=== PATIENT | female | born 1960 | race Caucasian/White ===

== ENCOUNTER 2024-01-19 13:11 | Observation (INO) ==
[2024-01-19] MEDS: ACETAMINOPHEN 1,000 MG/100 ML VIAL IV STA (13:44)
--- NOTE | 2024-01-19 13:44 | Emergency Department Note ---
Impression & Plan Acute confusion, Influenza A, Fever, Elevated procalcitonin, Elevated serum creatinine, Acute hypokalemia, Non-ST elevation AR (NSTEMI) ED Provider Note HISTORY OF PRESENT ILLNESS: Patient is a 63-year-old female presenting with confusion and weakness. Son provides most of history. Reports that the patient has been lethargic and acting very confused for the last 24 hours. Reports that she seems like she has been having difficulties getting words out. Reports that the patient has had subjective fevers and chills at home. 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 Patient denies any chest pain or shortness of breath. She is on Coumadin for previous history of cardiac stents. She reports she has [address] She denies any nausea, vomiting or abdominal pain. Denies any dysuria or hematuria. Reports she started having some nasal congestion 2 days ago. ROS: as above PHYSICAL EXAM: Constitutional: Patient appears in no acute distress. HENT: Head: Normocephalic and atraumatic. Eyes: EOMI, PERRL Mouth/Throat: Mucous membranes moist. Neck: Trachea midline. Neck supple. Cardiovascular: Tachycardic with regular rhythm. No murmurs, rubs or gallops. Intact distal pulses. Pulmonary/Chest: No respiratory distress. Breath sounds clear and equal bilaterally. No wheezes or rales. Abdominal: Abdomen soft, no tenderness, rebound or guarding. Musculoskeletal: No edema, tenderness or deformity noted. Skin: Warm and dry. No rash, erythema, pallor or cyanosis Psychiatric: Appropriate mood and affect for situation. Neurological: Alert and keenly responsive. CN II-XII grossly intact, moving all extremities equally and fully. MDM: - Vitals signs showed fever, hypotension and tachycardia. - History obtained via patient's son, given patient's confusion. History as above. - Chronic conditions affecting care: CAD (s/p PCI); HLD; HTN; hypopituitarism; hypothyroidism - Differential diagnoses include, but are not limited to: CVA; intracranial hemorrhage; viral syndrome; pneumonia; UTI; dysrhythmia - Order placed for continuous cardiac monitoring. At this time, monitor showed rate of 93 bpm with normal sinus rhythm, per my interpretation. - External medical records reviewed. Wellness visit note dated 12/10/2023 was reviewed. Patient followed up in their clinic for her healthcare maintenance examination. - EKG interpreted by myself showed normal sinus rhythm. Rate tachycardic at 102 bpm. QT prolonged at 418. No acute ischemic changes. Noted to have an occasional PVC - Laboratory workup interpreted by myself showed normal WBC; hypokalemia (K 3.3); elevated anion gap (12); KRISTIN (Cr 1.38); normal lactate; elevated troponin (21.5); elevated procalcitonin (1.01) - Blood cultures obtained - IV rocephin ordered for empiric coverage - Patient given 2L NS and 1g IV acetaminophen for hydration and fever. Patient's sepsis fluid resuscitation volume will be 1704.3 mL based on ideal body weight. - VBG grossly unremarkable - CXR negative for pneumonia, per my interpretation - UA negative. - CT head wo contrast negative for acute pathology, per radiology - Viral respiratory panel positive for influenza A. - Patient given 75 mg PO tamiflu. - Discussion was had with case management manager about patient's case and need for admission - Hospitalist consulted for admission - [facility] further evaluation and management. ASSESSMENT AND PLAN: Diagnosis: acute confusion; influenza A; elevated procalcitonin; elevated creatinine; NSTEMI; acute hypokalemia Plan: admit Past Med/Surg History Medical History (Updated 01/19/24 @ 15:53 by Sarah Lewis MD) Lump of left breast Myofascial pain Chronic anticoagulation Chronic low back pain Right groin pain Tremor Lumbar facet joint syndrome Leg length discrepancy Seizure-like activity Hypercalcemia Pituicytoma Scoliosis Fibromyalgia Osteoarthritis Anxiety Jerking movements of extremities Hyperlipidemia Myocardial Infarction 2013--follows with Dr. 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 [facility] Dyslipidemia Hypertension History of therapeutic radiation 2006 Migraine Chronic pain Insomnia CAD (coronary artery disease) [facility] Surgical History History of bunionectomy History of toe surgery History of colonoscopy History of esophagogastroduodenoscopy (EGD) History of wisdom tooth extraction History of tooth extraction 06/02/23 History of blepharoplasty bilt History of cardiac cath 2013 @ [facility] in [place], [place] H/O heart artery stent 2013--5 stents placed History of cryosurgery S/P craniotomy x2--benign pituitary tumor in [place] Family History Father Heart disease Myocardial infarction Family history of diabetes mellitus Mother Stroke Family history of diabetes mellitus Myocardial infarction Grandfather (Maternal) Stroke Grandmother (Maternal) Stroke Sister Stroke Other Anxiety Depression Hypertension No family history of adverse response to anesthesia Denies family history of Ovarian cancer Prostate cancer Breast cancer Lung cancer Colorectal cancer Social History Smoking Status: Never smoker Second Hand Exposure: No (mom smoked); Do You Dip or Chew Tobacco: No; Hx Alcohol Use: No Hx Substance Use: No Preferred Language: Luxembourger Communication Ability: Effective Visual Impairment: Partially Limited Hearing Ability: Normal Warp Knit Operator Required: No Beliefs That Will Affect Care: None marital status: Legally Current Living Situation: Family Current Living Situation Comment: Lives with son current occupational status: employed 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 How many Children do You have: 2 Feels Safe at Home: Yes Childhood Exposure to Second-Hand Smoke: Yes (mother smoked ) caffeine: Yes (coffee) Dental Care, Regularly: No Physical Activity Frequency: 3-4 Times per Week Physical Activity Frequency Comment: swimming Seatbelt Use: always Sunscreen Use: Yes Assistive Devices: None Allergies Allergies Allergy/AdvReac Type Severity Reaction Status Date / Time cephalothin [From Seffin] Allergy Intermediate Hives Verified 12/10/23 11:14 Cephalosporins Allergy Verified 12/10/23 11:14 Home Meds Home Medications Medication Instructions Recorded Confirmed cholecalciferol (vitamin D3) 50 2,000 unit PO QAM 04/06/20 12/10/23 mcg (2,000 unit) tablet (Vitamin D3) rimegepant 75 mg disintegrating 75 mg PO ONCE PRN migraine headache 04/28/23 12/10/23 tablet (Nurtec ODT) Previous Rx's Medication Instructions Recorded aspirin 81 mg tablet,delayed 81 mg PO DAILY #30 tabs 09/01/19 release mecobalamin (vitamin B12) 10,000 1,000 mcg IM .COMPLEX #1 ea 10/25/21 mcg solution for injection diazepam 5 mg tablet 5 mg PO .COMPLEX PRN anxiety #2 04/28/23 tabs rosuvastatin 20 mg tablet 20 mg PO QAM #90 tabs 04/29/23 gabapentin 600 mg tablet 600 mg PO BID #60 tabs 06/22/23 levothyroxine 125 mcg tablet 125 mcg PO DAILY #90 tabs 07/13/23 pantoprazole 40 mg tablet,delayed 40 mg PO QAM #90 tabs 08/12/23 release tramadol 50 mg tablet 50 mg PO .QD-BID PRN pain #30 tabs 08/17/23 montelukast 10 mg tablet 10 mg PO QPM #30 tabs 09/09/23 (Singulair) prednisone 1 mg tablet 4 mg (4 x 1 mg) PO QAM #360 tabs 10/22/23 fluticasone 100 mcg-salmeterol 50 1 inh inhalation BID #60 ea 10/25/23 mcg/dose blistr powdr for inhalation (Advair Diskus) fenofibrate 160 mg tablet 160 mg PO DAILY #90 tabs 10/29/23 clopidogrel 75 mg tablet 75 mg PO DAILY #90 tabs 11/08/23 doxycycline hyclate 100 mg tablet 100 mg PO BID 7 days #14 tabs 12/08/23 cyclobenzaprine 10 mg tablet 10 mg PO BID PRN muscle spasm #60 12/14/23 tabs metoprolol succinate 25 mg 25 mg PO DAILY #90 tabs 12/14/23 tablet,extended release 24 hr topiramate 50 mg tablet (Topamax) 50 mg PO .COMPLEX #90 tabs 12/25/23 clonazepam 1 mg tablet 1 mg PO HS #30 tabs 01/07/24 albuterol sulfate 90 mcg/actuation 2 puff inhalation Q6 PRN Shortness 01/13/24 aerosol inhaler Of Breath Or Wheezing #8.5 grams Results & Data (ED) Vital Signs Vital Signs - 24 hr 01/19/24 13:15 01/19/24 13:24 01/19/24 13:30 Temperature 39.5 C H Temperature Source Oral Pulse Rate 122 H 108 H Pulse Rate from SpO2 Sensor Respiratory Rate 18 26 H Blood Pressure 122/85 Blood Pressure [Right Arm] Blood Pressure Mean 89 Blood Pressure Mean [Right Arm] Pulse Oximetry 98 Oxygen Delivery Method Room Air Sepsis Recent Fever Within 48 Hours Yes Sepsis New/Unexplained Change in Mental Status No Sepsis Action Taken by Nursing No Action Required 01/19/24 13:30 01/19/24 13:44 01/19/24 13:45 Temperature Temperature Source Pulse Rate 103 H 109 H 101 H Pulse Rate from SpO2 Sensor 93 H 102 H Respiratory Rate 21 25 H Blood Pressure Blood Pressure [Right Arm] Blood Pressure Mean Blood Pressure Mean [Right Arm] Pulse Oximetry 94 95 Oxygen Delivery Method Sepsis Recent Fever Within 48 Hours Sepsis New/Unexplained Change in Mental Status Sepsis Action Taken by Nursing 01/19/24 14:00 01/19/24 14:00 01/19/24 14:15 Temperature Temperature Source Pulse Rate 109 H 103 H Pulse Rate from SpO2 Sensor 102 H Respiratory Rate 29 H 21 Blood Pressure 121/87 Blood Pressure [Right Arm] Blood Pressure Mean 95 Blood Pressure Mean [Right Arm] Pulse Oximetry 94 Oxygen Delivery Method Sepsis Recent Fever Within 48 Hours Sepsis New/Unexplained Change in Mental Status Sepsis Action Taken by Nursing 01/19/24 14:30 01/19/24 14:30 01/19/24 14:38 Temperature Temperature Source Pulse Rate 100 H Pulse Rate from SpO2 Sensor Respiratory Rate 16 Blood Pressure 92/68 L Blood Pressure [Right Arm] 92/68 L Blood Pressure Mean 74 Blood Pressure Mean [Right Arm] 76 Pulse Oximetry Oxygen Delivery Method Sepsis Recent Fever Within 48 Hours Sepsis New/Unexplained Change in Mental Status Sepsis Action Taken by Nursing 01/19/24 14:46 01/19/24 14:59 01/19/24 15:00 Temperature Temperature Source Pulse Rate 97 H 93 H 97 H Pulse Rate from SpO2 Sensor 92 H 92 H Respiratory Rate 16 21 21 Blood Pressure Blood Pressure [Right Arm] Blood Pressure Mean Blood Pressure Mean [Right Arm] Pulse Oximetry 94 85 L Oxygen Delivery Method Sepsis Recent Fever Within 48 Hours Sepsis New/Unexplained Change in Mental Status Sepsis Action Taken by Nursing 01/19/24 15:01 01/19/24 15:01 01/19/24 15:15 Temperature Temperature Source Pulse Rate 98 H 92 H Pulse Rate from SpO2 Sensor 98 H Respiratory Rate 16 19 Blood Pressure 94/68 L Blood Pressure [Right Arm] Blood Pressure Mean 81 Blood Pressure Mean [Right Arm] Pulse Oximetry 95 Oxygen Delivery Method Sepsis Recent Fever Within 48 Hours Sepsis New/Unexplained Change in Mental Status Sepsis Action Taken by Nursing 01/19/24 15:30 01/19/24 15:45 01/19/24 15:48 Temperature Temperature Source Pulse Rate 93 H 89 85 Pulse Rate from SpO2 Sensor Respiratory Rate 20 17 27 H Blood Pressure Blood Pressure [Right Arm] Blood Pressure Mean Blood Pressure Mean [Right Arm] Pulse Oximetry Oxygen Delivery Method Sepsis Recent Fever Within 48 Hours Sepsis New/Unexplained Change in Mental Status Sepsis Action Taken by Nursing 01/19/24 15:48 Temperature Temperature Source Pulse Rate Pulse Rate from SpO2 Sensor Respiratory Rate Blood Pressure 95/47 L Blood Pressure [Right Arm] Blood Pressure Mean 70 Blood Pressure Mean [Right Arm] Pulse Oximetry Oxygen Delivery Method Sepsis Recent Fever Within 48 Hours Sepsis New/Unexplained Change in Mental Status Sepsis Action Taken by Nursing Laboratory Data 01/19/24 13:40 01/19/24 13:40 Lab Results 01/19/24 01/19/24 01/19/24 Range/Units 13:40 15:08 15:09 WBC 8.64 (4.8-10.8) K/ul RBC 5.22 (4.20-5.40) M/uL Hgb 15.2 (12.0-16.0) g/dl Hct 45.4 (37.0-47.0) % MCV 87.0 (80.0-100.0) fL MCH 29.1 (25.0-34.0) pg MCHC 33.5 (32.0-36.0) g/dL RDW Std Deviation 39.8 (36.4-46.3) fL RDW Coeff of Long 12.7 (11.5-14.5) % Plt Count 226 (130-400) K/uL MPV 10.2 (9.4-12.4) fL Immature Gran % (Auto) 0.3 % Neut % (Auto) 63.9 % Lymph % (Auto) 24.2 % [place] % (Auto) 8.8 % Eos % (Auto) 2.1 % Baso % (Auto) 0.7 % Neut # (Auto) 5.52 (1.40-6.50) K/uL Lymph # (Auto) 2.09 (1.20-3.40) K/uL [place] # (Auto) 0.76 H (0.11-0.59) K/uL Eos # (Auto) 0.18 (0.00-0.50) K/uL Baso # (Auto) 0.06 (0.00-0.20) K/uL Immature Gran # (Auto) 0.03 (0.01-0.20) K/uL PT 12.3 H (9.0-12.0) Seconds INR 1.1 (0.9-1.1) VBG pH 7.43 H (7.36-7.41) VBG pCO2 34 L (38-50) mmHg VBG pO2 38 mmHg VBG HCO3 23 mmol/L VBG O2 Saturation 75.5 % VBG Base Excess -1.1 mEq/L Sodium 137 (136-145) mmol/L Potassium 3.3 L (3.5-5.1) mmol/L Chloride 104 (98-107) mmol/L Carbon Dioxide 21 (21-32) mmol/L Anion Gap 12 H (3-11) BUN 19 (6-23) mg/dl Creatinine 1.38 H (0.6-1.2) mg/dl Est Cr Clr Drug Dosing 42.2 ml/min Est GFR ( Amer) 47.0 ml/min Est GFR (Non-Af Amer) 40.6 ml/min BUN/Creatinine Ratio 13.8 (10-20) Glucose 86 (70-99(Fasting)) mg/dl Lactate 1.5 (0.4-2.0) mmol/L Calcium 9.3 (8.6-10.3) mg/dl Magnesium 1.9 (1.7-2.4) mg/dl Total Bilirubin 0.7 (0.2-1.0) mg/dl Direct Bilirubin 0.1 (0-0.2) mg/dl AST 32 (13-39) U/L ALT 23 (7-52) U/L Alkaline Phosphatase 59 (34-104) U/L Troponin I High Sens 21.5 H 25.6 H (0-14) pg/ml Total Protein 7.7 (6.0-8.3) gm/dl Albumin 4.6 (3.4-5.0) gm/dl Procalcitonin 1.01 H (0-0.5) ng/ml Urine Color Urine Appearance (Clear) Urine pH (4.5-7.5) Ur Specific Plain (1.000-1.030) Urine Protein (Negative) Urine Glucose (UA) (Negative) Urine Ketones (Negative) Urine Blood (Negative) Urine Nitrite (Negative) Urine Bilirubin (Negative) Urine Urobilinogen (Negative) Ur Leukocyte Esterase (Negative) Urine WBC (Auto) (0-5) /hpf Urine RBC (Auto) (0-2) /hpf U Hyaline Cast (Auto) (0-2) /lpf U Epithel Cells (Auto) (0-2) /hpf Urine Bacteria (Auto) (None Seen) Adenovirus (PCR) Not Detected (NotDetected) B. pertussis DNA (PCR) Not Detected (NotDetected) B.parapertussis DNA PCR Not Detected (NotDetected) C. pneumoniae DNA (PCR) Not Detected (NotDetected) Coronavirus OC43 (PCR) Not Detected (NotDetected) Coronavirus HKU1 (PCR) Not Detected (NotDetected) Coronavirus 229E (PCR) Not Detected (NotDetected) SARS-CoV-2 (PCR) Not Detected (NotDetected) Coronavirus NL63 (PCR) Not Detected (NotDetected) Human Metapneumovir PCR Not Detected (NotDetected) Influenza A (H3) PCR DETECTED A (NotDetected) Influenza Type B (PCR) Not Detected (NotDetected) M. pneumoniae (PCR) Not Detected (NotDetected) Parainfluenza 1 (PCR) Not Detected (NotDetected) Parainfluenza 2 (PCR) Not Detected (NotDetected) Parainfluenza 3 (PCR) Not Detected (NotDetected) Parainfluenza 4 (PCR) Not Detected (NotDetected) RSV (PCR) Not Detected (NotDetected) Entero/Rhino (PCR) Not Detected (NotDetected) 01/19/24 Range/Units 15:20 WBC (4.8-10.8) K/ul RBC (4.20-5.40) M/uL Hgb (12.0-16.0) g/dl Hct (37.0-47.0) % MCV (80.0-100.0) fL MCH (25.0-34.0) pg MCHC (32.0-36.0) g/dL RDW Std Deviation (36.4-46.3) fL RDW Coeff of Long (11.5-14.5) % Plt Count (130-400) K/uL MPV (9.4-12.4) fL Immature Gran % (Auto) % Neut % (Auto) % Lymph % (Auto) % [place] % (Auto) % Eos % (Auto) % Baso % (Auto) % Neut # (Auto) (1.40-6.50) K/uL Lymph # (Auto) (1.20-3.40) K/uL [place] # (Auto) (0.11-0.59) K/uL Eos # (Auto) (0.00-0.50) K/uL Baso # (Auto) (0.00-0.20) K/uL Immature Gran # (Auto) (0.01-0.20) K/uL PT (9.0-12.0) Seconds INR (0.9-1.1) VBG pH (7.36-7.41) VBG pCO2 (38-50) mmHg VBG pO2 mmHg VBG HCO3 mmol/L VBG O2 Saturation % VBG Base Excess mEq/L Sodium (136-145) mmol/L Potassium (3.5-5.1) mmol/L Chloride (98-107) mmol/L Carbon Dioxide (21-32) mmol/L Anion Gap (3-11) BUN (6-23) mg/dl Creatinine (0.6-1.2) mg/dl Est Cr Clr Drug Dosing ml/min Est GFR ( Amer) ml/min Est GFR (Non-Af Amer) ml/min BUN/Creatinine Ratio (10-20) Glucose (70-99(Fasting)) mg/dl Lactate (0.4-2.0) mmol/L Calcium (8.6-10.3) mg/dl Magnesium (1.7-2.4) mg/dl Total Bilirubin (0.2-1.0) mg/dl Direct Bilirubin (0-0.2) mg/dl AST (13-39) U/L ALT (7-52) U/L Alkaline Phosphatase (34-104) U/L Troponin I High Sens (0-14) pg/ml Total Protein (6.0-8.3) gm/dl Albumin (3.4-5.0) gm/dl Procalcitonin (0-0.5) ng/ml Urine Color Yellow Urine Appearance Clear (Clear) Urine pH 5.5 (4.5-7.5) Ur Specific Plain 1.017 (1.000-1.030) Urine Protein Negative (Negative) Urine Glucose (UA) Negative (Negative) Urine Ketones Negative (Negative) Urine Blood Negative (Negative) Urine Nitrite Negative (Negative) Urine Bilirubin Negative (Negative) Urine Urobilinogen Negative (Negative) Ur Leukocyte Esterase 1+ H (Negative) Urine WBC (Auto) 0-5 (0-5) /hpf Urine RBC (Auto) 0-2 (0-2) /hpf U Hyaline Cast (Auto) 0-2 (0-2) /lpf U Epithel Cells (Auto) 0-2 (0-2) /hpf Urine Bacteria (Auto) None Seen (None Seen) Adenovirus (PCR) (NotDetected) B. pertussis DNA (PCR) (NotDetected) B.parapertussis DNA PCR (NotDetected) C. pneumoniae DNA (PCR) (NotDetected) Coronavirus OC43 (PCR) (NotDetected) Coronavirus HKU1 (PCR) (NotDetected) Coronavirus 229E (PCR) (NotDetected) SARS-CoV-2 (PCR) (NotDetected) Coronavirus NL63 (PCR) (NotDetected) Human Metapneumovir PCR (NotDetected) Influenza A (H3) PCR (NotDetected) Influenza Type B (PCR) (NotDetected) M. pneumoniae (PCR) (NotDetected) Parainfluenza 1 (PCR) (NotDetected) Parainfluenza 2 (PCR) (NotDetected) Parainfluenza 3 (PCR) (NotDetected) Parainfluenza 4 (PCR) (NotDetected) RSV (PCR) (NotDetected) Entero/Rhino (PCR) (NotDetected) Administered Medications Vancomycin HCl 1,750 mg/ (Sodium Chloride) 535 mls @ 200 mls/hr IV NOW ONE Stop: 01/19/24 17:35 Last Admin: 01/19/24 15:48 Dose: 200 mls/hr Documented By: ACC Discontinued Medications Sodium Chloride (Nss) 1,000 mls @ 999 mls/hr IV .Q1H1M ONE Stop: 01/19/24 14:23 Last Admin: 01/19/24 13:45 Dose: 999 mls/hr Documented By: BCN Acetaminophen (Ofirmev) 1,000 mg in 100 mls @ 400 mls/hr IV NOW STA Stop: 01/19/24 13:37 Last Infusion: 01/19/24 14:27 Dose: Infused Documented By: Admin: 01/19/24 13:44 Dose: 400 mls/hr Documented By: BCN Sodium Chloride (Nss) 1,000 mls @ 999 mls/hr IV .Q1H1M ONE Stop: 01/19/24 15:44 Last Admin: 01/19/24 15:49 Dose: 999 mls/hr Documented By: ACC Ceftriaxone Sodium (Rocephin) 2,000 mg in 50 mls @ 100 mls/hr IV NOW STA Stop: 01/19/24 15:13 Last Admin: 01/19/24 15:23 Dose: 100 mls/hr Documented By: ACC Imaging Data Radiologist's Impression: Chest X-Ray 01/19/24 13:23 XR chest 1V portable HISTORY: Sepsis COMPARISON: Chest 10/19/2023. FINDINGS: The lungs are clear. Cardiac silhouette is normal in size. No pleural effusions. No pneumothorax. Coronary artery stents are again noted. IMPRESSION: No acute process. ACT 112: Negative or not required by law. Electronically signed by: Delfino Banks M.D. 01/19/2024 2:[address] 01/19/24 14:00 CT head/brain wo con CLINICAL HISTORY: 63 years-old Female with confusion. Acutely altered mental status TECHNIQUE: Multiple axial CT images of the head were obtained without contrast. A dose lowering technique was utilized adhering to the principles of ALARA. CT DOSE: 625.8 mGy.cm COMPARISON: 05/18/[address], brain MRI 06/04/2022 FINDINGS: No acute intracranial hemorrhage, midline shift, intracranial mass, hydrocephalus, territorial ischemia or abnormal extra-axial collection. Encephalomalacia within the right frontal lobe redemonstrated. Chronic postoperative changes of the skull and sella. White matter hypodensities are redemonstrated suggestive of chronic microvascular ischemic disease. The calvarium is intact. Mild to moderate mucosal thickening of the paranasal sinuses. IMPRESSION: Chronic findings as above without acute intracranial abnormality. ACT 112: Negative or not required by law. The above report was generated using voice recognition software. It may contain grammatical, syntax or spelling errors. Electronically signed by: Emil Jurado M.D. 01/19/2024 3:03 PM Discharge Plan Visit Data Chief Complaint: Lethargic Stated Complaint: WEAKNESS, COUGH, UNSTEADY ED Provider: Sarah Lewis Discharge Problem: Acute confusion, Influenza A, Fever, Elevated procalcitonin, Elevated serum creatinine, Acute hypokalemia, Non-ST elevation AR (NSTEMI) Forms Stand Alone Forms: [email or web address] Prescriptions Prescriptions: No Action mecobalamin (vitamin B12) 10,000 mcg recon soln 1,000 mcg IM .COMPLEX Qty: 1 7RF Rx Instructions: 1,000 mcg IM once weekly x 4 weeks; then 1,000mcg IM once monthly thereafter; rosuvastatin 20 mg tablet 20 mg PO QAM Qty: 90 3RF Patient Comments: pt states she takes in am gabapentin 600 mg tablet 600 mg PO BID Qty: 60 5RF levothyroxine 125 mcg tablet 125 mcg PO DAILY Qty: 90 3RF Patient Comments: takes in the am pantoprazole 40 mg tablet,delayed release (DR/EC) 40 mg PO QAM Qty: 90 1RF tramadol 50 mg tablet 50 mg PO .QD-BID PRN (Reason: pain) Qty: 30 0RF montelukast [Singulair] 10 mg tablet 10 mg PO QPM Qty: 30 5RF prednisone 1 mg tablet 4 mg PO QAM Qty: 360 3RF Rx Instructions: Double for stress fluticasone propion-salmeterol [Advair Diskus] 100-50 mcg/dose blister with device 1 inh inhalation BID Qty: 60 2RF Rx Instructions: rinse mouth after use. fenofibrate 160 mg tablet 160 mg PO DAILY Qty: 90 3RF clopidogrel 75 mg tablet 75 mg PO DAILY Qty: 90 3RF Patient Comments: takes in the am doxycycline hyclate 100 mg tablet 100 mg PO BID 7 Days Qty: 14 0RF cyclobenzaprine 10 mg tablet 10 mg PO BID PRN (Reason: muscle spasm) Qty: 60 1RF metoprolol succinate 25 mg tablet extended release 24 hr 25 mg PO DAILY Qty: 90 1RF Patient Comments: takes in the am topiramate [Topamax] 50 mg tablet 50 mg PO .COMPLEX Qty: 90 5RF Rx Instructions: 50 mg orally IN THE AM AND 100MG IN THE PM; clonazepam 1 mg tablet 1 mg PO HS Qty: 30 1RF albuterol sulfate 90 mcg/actuation HFA aerosol inhaler 2 puff inhalation Q6 PRN (Reason: Shortness Of Breath Or Wheezing) Qty: 8.5 1RF aspirin 81 mg tablet,delayed release (DR/EC) 81 mg PO DAILY Qty: 30 2RF Patient Comments: takes in the am Nurtec ODT 75 mg tablet,disintegrating 75 mg PO ONCE PRN (Reason: migraine headache) diazepam 5 mg tablet 5 mg PO .COMPLEX PRN (Reason: anxiety) Qty: 2 0RF Rx Instructions: 5 mg PO TAKE 1 HOUR PRIOR TO PROCEDURE , MAY REPEAT DURING PROCEDURE IF NEEDED PRN; cholecalciferol (vitamin D3) [Vitamin D3] 50 mcg (2,000 unit) Tablet 2,000 unit PO QAM Referrals Referrals: George Troy MD [Primary Care Provider] -
[2024-01-19] MEDS: SODIUM CHLORIDE 0.9% 1,000 ML IV ONE ×2 (13:45→15:49)
[2024-01-19 13:52] LABS: Basophils # (auto) 0.06 K/uL (0.00-0.20); Basophils % (auto) 0.7 %; Eosinophils # (auto) 0.18 K/uL (0.00-0.50); Eosinophils % (auto) 2.1 %; Hematocrit (blood only) 45.4 % (37.0-47.0); Hemoglobin 15.2 g/dl (12.0-16.0); Immature Granulocytes # (auto) 0.03 K/uL (0.01-0.20); Immature Granulocytes % (auto) 0.3 %; Lymphocytes # (auto) 2.09 K/uL (1.20-3.40); Lymphocytes % (auto) 24.2 %; Mean Corpuscular Hemoglobin 29.1 pg (25.0-34.0); Mean Corpuscular Hgb Conc 33.5 g/dL (32.0-36.0); Mean Platelet Volume 10.2 fL (9.4-12.4); Monocytes # (auto) 0.76 K/uL (0.11-0.59); Monocytes % (auto) 8.8 %; Neutrophils # (auto) 5.52 K/uL (1.40-6.50); Neutrophils % (auto) 63.9 %; Platelet Count 226 K/uL (130-400); RDW Coefficient of Variation 12.7 % (11.5-14.5); RDW Standard Deviation 39.8 fL (36.4-46.3); Red Blood Count 5.22 M/uL (4.20-5.40); White Blood Count 8.64 K/ul (4.8-10.8)
[2024-01-19 14:02] LABS: INR 1.1 (0.9-1.1); Prothrombin Time 12.3 Seconds (9.0-12.0)
--- NOTE | 2024-01-19 14:19 | XRay Report ---
XR chest 1V portable HISTORY: Sepsis COMPARISON: Chest 10/19/2023. FINDINGS: The lungs are clear. Cardiac silhouette is normal in size. No pleural effusions. No pneumot horax. Coronary artery stents are again noted. IMPRESSION: No acute process. ACT 112: Negative or not required by law. Electronically signed by: Delfino Banks M.D. 01/19/2024 2:18 PM
[2024-01-19 14:20] LABS: Albumin Level 4.6 gm/dl (3.4-5.0); Bilirubin Direct 0.1 mg/dl (0-0.2); Bilirubin,Total 0.7 mg/dl (0.2-1.0); Calcium 9.3 mg/dl (8.6-10.3); Magnesium 1.9 mg/dl (1.7-2.4); Potassium 3.3 mmol/L (3.5-5.1)
[2024-01-19 14:24] LABS: Troponin I High Sensitivity 21.5 pg/ml (0-14)
[2024-01-19 14:26] LABS: BUN Creatinine Ratio 13.8 (10-20); Creatinine Clr Calc Pharmacy 42.2 ml/min; Est GFR (Non-African American) 40.6 ml/min; Total Protein 7.7 gm/dl (6.0-8.3)
[2024-01-19] MEDS ORDERED: VANCOMYCIN CONSULT ACTIVE PRN (14:55)
[2024-01-19 14:58] LABS: Adenovirus PCR Not Detected (NotDetected); Bordetella parapertussis PCR Not Detected (NotDetected); Bordetella pertussis PCR Not Detected (NotDetected); Chlamydia pneumoniae PCR Not Detected (NotDetected); Coronavirus 229E PCR Not Detected (NotDetected); Coronavirus CoV-2 (COVID19)PCR Not Detected (NotDetected); Coronavirus HKU1 PCR Not Detected (NotDetected); Coronavirus NL63 PCR Not Detected (NotDetected); Coronavirus OC43PCR Not Detected (NotDetected); Human Metapneumovirus PCR Not Detected (NotDetected); Influenza A (H3) PCR DETECTED (NotDetected); Influenza B PCR Not Detected (NotDetected); Mycoplasma pneumoniae PCR Not Detected (NotDetected); Parainfluenza Virus 1 PCR Not Detected (NotDetected); Parainfluenza Virus 2 PCR Not Detected (NotDetected); Parainfluenza Virus 3 PCR Not Detected (NotDetected); Parainfluenza Virus 4 PCR Not Detected (NotDetected); Respiratory Syncytial VirusPCR Not Detected (NotDetected); Rhinovirus/Enterovirus PCR Not Detected (NotDetected)
--- NOTE | 2024-01-19 15:05 | CT Scan Report ---
CT head/brain wo con CLINICAL HISTORY: 63 years-old Female with confusion. Acutely altered mental status TECHNIQUE: Multiple axial CT images of the head were obtained without contrast. A dose lowering tech nique was utilized adhering to the principles of ALARA. CT DOSE: 625.8 mGy.cm COMPARISON: 05/18/[address], brain MRI 06/04/2022 FINDINGS: No acute intracranial hemorrhage, midline shift, intracranial mass, hydrocephalus, territorial ischem ia or abnormal extra-axial collection. Encephalomalacia within the right frontal lobe redemonstrated. Chronic postoperative changes of the skull and sella. White matter hypodensities are redemonstrated suggestive of chronic microvascular ischemic disease. The calvarium is intact. Mild to moderate mucosal thickening of the paranasal sinuses. IMPRESSION: Chronic findings as above without acute intracranial abnormality. ACT 112: Negative or not required by law. The above report was generated using voice recognition software. It may contain grammatical, syntax o r spelling errors. Electronically signed by: Emil Jurado M.D. 01/19/2024 3:03 PM
--- NOTE | 2024-01-19 15:14 | Electrocardiogram Report ---
Test Reason : Blood Pressure : / mmHG Vent. Rate : 102 BPM Atrial Rate : 102 BPM P-R Int : 150 ms QRS Dur : 090 ms QT Int : 418 ms P-R-T Axes : 066 033 057 degrees QTc Int : 544 ms Sinus tachycardia with occasional Premature ventricular complexes Diffuse ST depression Prolonged QT Abnormal ECG When compared with ECG of 19-OCT-2023 11:54, Premature ventricular complexes are now Present ST changes now present QT has lengthened Confirmed by Marty Sanchez ([id number]) on 01/19/2024 3:14:08 PM Referred By: REFERRED SELF Confirmed By:Marty Sanchez
[2024-01-19 15:18] LABS: Base Excess VBG -1.1 mEq/L; HCO3 VBG 23 mmol/L; Oxygen Saturation VBG 75.5 %; PCO2 VBG 34 mmHg (38-50); PO2 VBG 38 mmHg; pH VBG 7.43 (7.36-7.41)
[2024-01-19] MEDS: cefTRIAXone SODIUM 2,000 MG/50 ML BAG IV STA (15:23)
[2024-01-19] MEDS: VANCOMYCIN HCL 1,750 MG in SODIUM CHLORIDE 0.9% 500 ML IV ONE (15:48)
[2024-01-19 15:54] LABS: Appearance Urine Clear (Clear); Bilirubin Urine Negative (Negative); Blood Urine Negative (Negative); Color Urine Yellow; Glucose Urine UA Negative (Negative); Ketones Urine Negative (Negative); Protein Urine Negative (Negative); Specific Gravity Urine 1.017 (1.000-1.030); pH Urine 5.5 (4.5-7.5)
[2024-01-19 15:55] LABS: Bacteria Urine Automated None Seen (None Seen); Cast Urine Automated 0-2 /lpf (0-2); Epithelial Cell Urine Auto 0-2 /hpf (0-2); Leukocyte Esterase Urine 1+ (Negative); Nitrite Urine Negative (Negative); RBC Urine Automated 0-2 /hpf (0-2); Urobilinogen Urine Negative (Negative); WBC Urine Automated 0-5 /hpf (0-5)
[2024-01-19] MEDS: OSELTAMIVIR PHOSPHATE 75 MG CAP PO STA (16:24)
--- NOTE | 2024-01-19 16:43 | History & Physical Report ---
Date of Service January 19, 2024 Assessment & Plan (1) Influenza A: Plan: Lethargy, congestion, and lightheadedness with standing that began on 01/17 Patient reports she fell twice when standing; no LOC; head strike x [address] revealed no acute intracranial abnormalities CXR revealed no acute processes Influenza A (+) on arrival Procalcitonin mildly elevated at 1.01 Lactate WNL Blood cultures ordered Vancomycin + Rocephin given in the ED; will defer further antibiotics at this time Droplet isolation precautions Tamiflu 30mg p.o. BID (dose-reduced in the setting of KRISTIN) Acetaminophen as needed for fever/pain A.m. CBC, BMP (2) Secondary adrenal insufficiency: Plan: Hydrocortisone 100 mg IV given in the ED in the setting of acute physiologic stress and febrile illness Continue hydrocortisone 50mg IV q6h for now and ween to 25mg as tolerated Continue patient's daily prednisone 4 mg p.o. 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 BMPs (5) Acute hypokalemia: Plan: Mild; K 3.3 on arrival K rider 10mEq x1 + IVF Recheck a.m. K (6) CAD (coronary artery disease): Plan: 5 stents in the setting of ACS in 2014 Continue aspirin and Plavix daily (7) EKG, abnormal: Plan: EKG revealed sinus tachycardia with occasional PVCs at 102 bpm; QTc 544 (caution use of QT prolonging agents) Noted "diffuse ST depressions", but these are mainly in the lateral leads This is new when compared to EKG on 10/19/2023 Stress echocardiogram on 11/11/2023 was negative for exercise ischemia on echo and EKG; will defer another echo at this time Troponin 21-->25 on arrival; trend troponin q6h x 2 (8) Chronic pain: Plan: Continue gabapentin Plan Disposition: Admit to [facility] telemetry Full code Regular diet VTE PPx: SCDs, continue ASA + Plavix History of Present Illness Chief Complaint: Lethargic Primary Care Provider: George Troy MD Anuja is a 63-year-old female with PMH of hypopituitarism following procedure, secondary adrenal insufficiency, CAD, dyslipidemia, fibromyalgia, asthma, lumbar radiculopathy, and HTN. Patient presented for lethargy and flulike symptoms that began yesterday, on Wednesday 01/17. She noted that she was having a runny nose, and could not think/talk/walk straight. Patient reports she felt off balance whenever she would stand up, and fell twice, including once when she struck her head; no LOC; patient is on Plavix and aspirin daily. Hx of heart disease in the family, and she takes DAPT for her 5 heart stents. She denies any fainting yesterday. While she does not believe she had a fever at home, she does report that she has felt feverish in the ED. Patient did not take any of her regular p.o. medications this morning; no recent change in medications. She did not take any additional medications last night when her symptoms developed. 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 Patient did receive her flu shot this year; she has not had influenza anytime in recent memory. She denies smoking, tobacco use, and alcohol use. Patient is febrile at 39.5 C at time of admission; vitals otherwise stable. ED course: Vancomycin 1750 mg IV Rocephin 2000 mg IV Acetaminophen 1000 mg IV Tamiflu 75 mg p.o. NSS 1000 L IV ROS: Patient endorses lightheadedness with standing, falling down, feeling off- balance, intermittent HAs (chronic), runny nose, congestion, dry cough, and neuropathy in feet (chronic). Patient denies fever, chills, night-sweats, body aches, dizziness, changes in vision/hearing/taste/smell, chest pain, SOB, chest palpitations, pleuritic CP, abdominal pain, N/V/D, change in urinary/bowel habits, burning with urination, or blood in the urine/stool. Allergies Allergy/AdvReac Type Severity Reaction Status Date / Time Cephalosporins Allergy Intermediate Hives Verified 01/19/24 16:20 cephalothin [From Seffin] Allergy Intermediate Hives Verified 01/19/24 16:20 Home Medications Medication Instructions Recorded Confirmed Type aspirin 81 mg tablet,delayed 81 mg PO DAILY #30 tabs 09/01/19 01/19/24 Rx release cholecalciferol (vitamin D3) 50 2,000 unit PO QAM 04/06/20 01/19/24 History mcg (2,000 unit) tablet (Vitamin D3) diazepam 5 mg tablet 5 mg PO .COMPLEX PRN anxiety #2 04/28/23 01/19/24 Rx tabs rimegepant 75 mg disintegrating 75 mg PO DIRECTED PRN migraine 04/28/23 01/19/24 History tablet (Nurtec ODT) headache rosuvastatin 20 mg tablet 20 mg PO QAM #90 tabs 04/29/23 01/19/24 Rx gabapentin 600 mg tablet 600 mg PO BID #60 tabs 06/22/23 01/19/24 Rx levothyroxine 125 mcg tablet 125 mcg PO DAILY #90 tabs 07/13/23 01/19/24 Rx pantoprazole 40 mg tablet,delayed 40 mg PO QAM #90 tabs 08/12/23 01/19/24 Rx release tramadol 50 mg tablet 50 mg PO .QD-BID PRN pain #30 tabs 08/17/23 01/19/24 Rx montelukast 10 mg tablet 10 mg PO QPM #30 tabs 09/09/23 01/19/24 Rx (Singulair) prednisone 1 mg tablet 4 mg (4 x 1 mg) PO QAM #360 tabs 10/22/23 01/19/24 Rx fluticasone 100 mcg-salmeterol 50 1 inh inhalation BID #60 ea 10/25/23 01/19/24 Rx mcg/dose blistr powdr for inhalation (Advair Diskus) fenofibrate 160 mg tablet 160 mg PO DAILY #90 tabs 10/29/23 01/19/24 Rx clopidogrel 75 mg tablet 75 mg PO DAILY #90 tabs 11/08/23 01/19/24 Rx cyclobenzaprine 10 mg tablet 10 mg PO BID PRN muscle spasm #60 03/18/24 04/23/24 Rx tabs metoprolol succinate 25 mg 25 mg PO DAILY #90 tabs 12/14/23 01/19/24 Rx tablet,extended release 24 hr topiramate 50 mg tablet (Topamax) 50 mg PO .COMPLEX #90 tabs 12/25/23 01/19/24 Rx clonazepam 1 mg tablet 1 mg PO HS #30 tabs 01/07/24 01/19/24 Rx albuterol sulfate 90 mcg/actuation 2 puff inhalation Q6 PRN Shortness 01/13/24 01/19/24 Rx aerosol inhaler Of Breath Or Wheezing #8.5 grams cyanocobalamin (vitamin B-12) 1,000 mcg IM .[id number] 01/19/24 01/19/24 History 1,000 mcg/mL injection solution Past Med/Surg History Medical History (Updated 01/19/24 @ 18:00 by Delfino Noriega PA-C) Lump of left breast Myofascial pain Chronic anticoagulation Chronic low back pain Right groin pain Tremor Lumbar facet joint syndrome Leg length discrepancy Seizure-like activity Hypercalcemia Pituicytoma Scoliosis Fibromyalgia Osteoarthritis Anxiety Jerking movements of extremities Hyperlipidemia Myocardial Infarction 2013--follows with Dr. 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 [facility] Dyslipidemia Hypertension History of therapeutic radiation 2006 Migraine Chronic pain Insomnia CAD (coronary artery disease) [facility] Surgical History History of bunionectomy History of toe surgery History of colonoscopy History of esophagogastroduodenoscopy (EGD) History of wisdom tooth extraction History of tooth extraction 06/02/23 History of blepharoplasty bilt History of cardiac cath 2013 @ [facility] in [place], [place] H/O heart artery stent 2013--5 stents placed History of cryosurgery S/P craniotomy x2--benign pituitary tumor in [place] Family History Father Heart disease Myocardial infarction Family history of diabetes mellitus Mother Stroke Family history of diabetes mellitus Myocardial infarction Grandfather (Maternal) Stroke Grandmother (Maternal) Stroke Sister Stroke Other Anxiety Depression Hypertension No family history of adverse response to anesthesia Denies family history of Ovarian cancer Prostate cancer Breast cancer Lung cancer Colorectal cancer Social History Smoking Status: Never smoker Second Hand Exposure: No (mom smoked); Do You Dip or Chew Tobacco: No; Hx Alcohol Use: No Hx Substance Use: No Preferred Language: Setswana Communication Ability: Effective Visual Impairment: Partially Limited Hearing Ability: Normal Pattern Marking Supervisor Required: No Beliefs That Will Affect Care: None marital status: Legally Current Living Situation: Family Current Living Situation Comment: Lives with son current occupational status: employed 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 How many Children do You have: 2 Feels Safe at Home: Yes Childhood Exposure to Second-Hand Smoke: Yes (mother smoked ) caffeine: Yes (coffee) Dental Care, Regularly: No Physical Activity Frequency: 3-4 Times per Week Physical Activity Frequency Comment: swimming Seatbelt Use: always Sunscreen Use: Yes Assistive Devices: None Review of Systems Review of Systems: See HPI above Physical Exam Physical Exam: General: no acute distress; non-toxic appearing; well-nourished; cooperative HEENT: normocephalic, atraumatic; no scleral icterus; PERRLA w/ EOMs intact; moist mucus membrane; vision and hearing grossly intact Neck: supple; no lymphadenopathy; trachea midline Skin: warm, dry without signs of tenting; no cyanosis; no rashes, bruising, lesions, or erythema noted CV: chest wall NTP; RRR; S1/S2 normal; no murmurs/rubs/gallops; pulses intact and symmetric at radial, DP, and PT Lungs: no acute respiratory distress; symmetrical chest wall expansion; clear breath sounds across all lung coon w/o adventitious sounds; no wheezing ABD: Soft, NTP; BS present; no rebound/guarding; no distention MSK: no tics or fasciculations; no edema noted in the LEs b/l, nonerythematous Neuro: A&Ox3; normal mood and affect; fluent speech; no focal deficits; sensation grossly intact in the LEs b/l Results & Data Results & Data Vital Signs (Past 12 Hours) Vital Signs Temp Pulse Resp BP BP Pulse Ox O2 Del Method 01/19/24 16:15 92 H 18 01/19/24 16:00 78 20 01/19/24 16:00 113/78 01/19/24 15:48 95/47 L 01/19/24 15:48 85 27 H 01/19/24 15:45 89 17 01/19/24 15:30 93 H 20 01/19/24 15:15 92 H 19 01/19/24 15:01 94/68 L 01/19/24 15:01 98 H 16 95 01/19/24 15:00 97 H 21 85 L 01/19/24 14:59 93 H 21 94 01/19/24 14:46 97 H 16 01/19/24 14:38 92/68 L 01/19/24 14:30 100 H 16 01/19/24 14:30 92/68 L 01/19/24 14:15 103 H 21 01/19/24 14:00 109 H 29 H 94 01/19/24 14:00 121/87 01/19/24 13:45 101 H 25 H 95 01/19/24 13:44 109 H 01/19/24 13:30 103 H 21 94 01/19/24 13:30 122/85 01/19/24 13:24 108 H 26 H 01/19/24 13:15 39.5 C H 122 H 18 98 Room Air Laboratory Results Abnormal lab results 01/19/24 01/19/24 01/19/24 Range/Units 13:40 15:08 15:09 [place] # (Auto) 0.76 H (0.11-0.59) K/uL PT 12.3 H (9.0-12.0) Seconds VBG pH 7.43 H (7.36-7.41) VBG pCO2 34 L (38-50) mmHg Potassium 3.3 L (3.5-5.1) mmol/L Anion Gap 12 H (3-11) Creatinine 1.38 H (0.6-1.2) mg/dl Troponin I High Sens 21.5 H 25.6 H (0-14) pg/ml Procalcitonin 1.01 H (0-0.5) ng/ml Ur Leukocyte Esterase (Negative) Influenza A (H3) PCR DETECTED A (NotDetected) 01/19/24 Range/Units 15:20 [place] # (Auto) (0.11-0.59) K/uL PT (9.0-12.0) Seconds VBG pH (7.36-7.41) VBG pCO2 (38-50) mmHg Potassium (3.5-5.1) mmol/L Anion Gap (3-11) Creatinine (0.6-1.2) mg/dl Troponin I High Sens (0-14) pg/ml Procalcitonin (0-0.5) ng/ml Ur Leukocyte Esterase 1+ H (Negative) Influenza A (H3) PCR (NotDetected) Diagnostic Findings Chest X-Ray 01/19/24 13:23 XR chest 1V portable HISTORY: Sepsis COMPARISON: Chest 10/19/2023. FINDINGS: The lungs are clear. Cardiac silhouette is normal in size. No pleural effusions. No pneumothorax. Coronary artery stents are again noted. IMPRESSION: No acute process. ACT 112: Negative or not required by law. Electronically signed by: Delfino Banks M.D. 01/19/2024 2:[address] 01/19/24 14:00 CT head/brain wo con CLINICAL HISTORY: 63 years-old Female with confusion. Acutely altered mental status TECHNIQUE: Multiple axial CT images of the head were obtained without contrast. A dose lowering technique was utilized adhering to the principles of ALARA. CT DOSE: 625.8 mGy.cm COMPARISON: 05/18/[address], brain MRI 06/04/2022 FINDINGS: No acute intracranial hemorrhage, midline shift, intracranial mass, hydrocephalus, territorial ischemia or abnormal extra-axial collection. Encep halomalacia within the right frontal lobe redemonstrated. Chronic postoperative changes of the skull and sella. White matter hypodensities are redemonstrated suggestive of chronic microvascular ischemic disease. The calvarium is intact. Mild to moderate mucosal thickening of the paranasal sinuses. IMPRESSION: Chronic findings as above without acute intracranial abnormality. ACT 112: Negative or not required by law. The above report was generated using voice recognition software. It may contain grammatical, syntax or spelling errors. Electronically signed by: Emil Jurado M.D. 01/19/2024 3:03 PM ECG Additional Comments: EKG revealed sinus tachycardia with PVCs at 102 bpm; QTc 544 (caution use of QT prolonging agents); diffuse ST depressions Code Status & VTE Plan Code Status Full code VTE Prophylaxis Plan VTE Prophylaxis will be ordered: Yes Supervising Physician Co-Signing Physician Notes I personally saw and examined the patient. I independently reviewed the labs, EKG, imaging, problem list, medication list, past medical history and family history. I verified all coronado points and agree with Delfino Noriega PA-C with the following exceptions and/or additions: 63 year old female presents to the ER with nasal congestion, fatigue, shortness of breath, nausea and vomiting. O/E HS increased rate, normal rhythm, no murmurs, Chest rhonchi throughout, Abdo SNT A/P Influenza A - tamiflu Adrenal insufficiency - secondary to panhypopituitarism and missing her prednisone earlier today. Hydrocortisone stress dose steroids overnight, can likely been weaned quickly pending clinical course. 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 therefore takes this regularly) Otherwise as above PG Care Time/CCT Total # of Minutes Spent Total Time Spent with Patient: Total time spent is greater than 50% in coordination of care (as documented) at patient's floor/unit and/or counseling patient: Coding [place] [address] INT INP/OBS CARE 3/75MIN Patient Type Established Medical Decision Making High Complexity Diagnoses Influenza A J10.1 Secondary adrenal insufficiency E27.49 Hypopituitarism E23.0 KRISTIN (acute kidney injury) N17.9 Acute hypokalemia E87.6 CAD (coronary artery disease) I25.10 EKG, abnormal R94.31 Chronic pain G89.29
[2024-01-19] MEDS: HYDROCORTISONE SOD SUCCINATE 100 MG/2 ML VIAL IV STA (16:59)
[2024-01-19] MEDS: LEVOTHYROXINE SODIUM 125 MCG TABLET PO ONE (18:36)
[2024-01-19] MEDS ORDERED: traMADol HCL 50 MG TABLET PO PRN (19:25)
[2024-01-19] MEDS ORDERED: ACETAMINOPHEN 325 MG TAB PO PRN (19:25)
[2024-01-19] MEDS ORDERED: ALBUTEROL HFA 8 GM INHALER INH PRN (19:25)
[2024-01-19] MEDS ORDERED: CYCLOBENZAPRINE HCL 10 MG TAB PO PRN (19:25)
[2024-01-19] MEDS: POTASSIUM CHLORIDE / WTR 10 MEQ/100 ML PLCT IV ONE (20:07)
[2024-01-19] MEDS: TOPIRAMATE 50 MG TAB PO SCH (20:13)
[2024-01-19] MEDS: PANTOprazole 40 MG TAB PO STA (20:14)
[2024-01-19] MEDS: MONTELUKAST SODIUM 10 MG TABLET PO SCH (20:14)
[2024-01-19] MEDS: ASPIRIN 81 MG ECTAB PO ONE (20:14)
[2024-01-19] MEDS: CLOPIDOGREL BISULFATE 75 MG TAB PO ONE (20:14)
[2024-01-19] MEDS: PLASMA-LYTE A 1,000 ML IV SCH (20:15)
[2024-01-19] MEDS: predniSONE 1 MG TAB PO SCH (20:15)
[2024-01-19] MEDS: GABAPENTIN 600 MG TAB PO SCH (20:15)
[2024-01-19] MEDS: clonazePAM 1 MG TAB PO SCH (20:20)
[2024-01-19] MEDS: FLUTICASONE/VILANTEROL 100/25MCG 14 PUFFS/INHALER INH SCH (20:58)
[2024-01-19] MEDS: OSELTAMIVIR PHOSPHATE SUSP 30 MG/5 ML UDP PO SCH (20:59)
[2024-01-19] MEDS ORDERED: OSELTAMIVIR PHOSPHATE 6 MG/ML SUSP PO SCH (21:00)
[2024-01-19] MEDS: HYDROCORTISONE SOD 50 MG in SYRINGE 0 ML IV SCH (22:48)
[2024-01-20] MEDS: LEVOTHYROXINE SODIUM 125 MCG TABLET PO SCH (05:07)
[2024-01-20] MEDS: BENZONATATE 100 MG CAPSULE PO PRN (05:07)
[2024-01-20 06:15] LABS: Basophils # (auto) 0.02 K/uL (0.00-0.20); Basophils % (auto) 0.3 %; Hematocrit (blood only) 36.9 % (37.0-47.0); Hemoglobin 12.5 g/dl (12.0-16.0); Immature Granulocytes # (auto) 0.02 K/uL (0.01-0.20); Immature Granulocytes % (auto) 0.3 %; Lymphocytes # (auto) 0.57 K/uL (1.20-3.40); Lymphocytes % (auto) 7.6 %; Mean Corpuscular Hemoglobin 29.5 pg (25.0-34.0); Mean Corpuscular Hgb Conc 33.9 g/dL (32.0-36.0); Mean Platelet Volume 10.6 fL (9.4-12.4); Neutrophils # (auto) 6.61 K/uL (1.40-6.50); Neutrophils % (auto) 87.8 %; Platelet Count 191 K/uL (130-400); RDW Coefficient of Variation 13.2 % (11.5-14.5); RDW Standard Deviation 41.6 fL (36.4-46.3); Red Blood Count 4.24 M/uL (4.20-5.40); White Blood Count 7.52 K/ul (4.8-10.8)
[2024-01-20 06:29] LABS: BUN Creatinine Ratio 14.1 (10-20); Calcium 8.3 mg/dl (8.6-10.3); Creatinine Clr Calc Pharmacy 62.7 ml/min; Est GFR (African American) 76.8 ml/min; Est GFR (Non-African American) 66.3 ml/min; Potassium 3.3 mmol/L (3.5-5.1)
[2024-01-20 06:35] LABS: Troponin I High Sensitivity 18.5 pg/ml (0-14)
[2024-01-20] MEDS: predniSONE 1 MG TAB PO SCH (08:36)
[2024-01-20] MEDS: ROSUVASTATIN CALCIUM 20 MG TAB PO SCH (08:36)
[2024-01-20] MEDS: METOPROLOL SUCC 25MG EXT REL TAB PO SCH (08:37)
[2024-01-20] MEDS: TOPIRAMATE 50 MG TAB PO SCH (08:37)
[2024-01-20] MEDS: PANTOprazole 40 MG TAB PO SCH (08:41)
[2024-01-20] MEDS: POTASSIUM CHLORIDE CRTAB 20 MEQ TABCR PO STA (10:06)
[2024-01-20] MEDS: CLOPIDOGREL BISULFATE 75 MG TAB PO SCH (10:06)
[2024-01-20] MEDS: ASPIRIN 81 MG ECTAB PO SCH (10:06)
--- NOTE | 2024-01-20 16:31 | Discharge Summary ---
Discharge Summary Date of Service January 20, 2024 Notes For Next Care Provider None Medication Changes From Visit Increased prednisone to 20mg daily x 2 days then 10mg daily x 2 days then resume 4mg daily Tamiflu 75mg po bid x 4 more days Admission HPI Per Admitting Provider Anuja is a 63-year-old female with PMH of hypopituitarism following procedure, secondary adrenal insufficiency, CAD, dyslipidemia, fibromyalgia, asthma, lumbar radiculopathy, and HTN. Patient presented for lethargy and flulike symptoms that began yesterday, on Wednesday 01/17. She noted that she was having a runny nose, and could not think/talk/walk straight. Patient reports she felt off balance whenever she would stand up, and fell twice, including once when she struck her head; no LOC; patient is on Plavix and aspirin daily. Hx of heart disease in the family, and she takes DAPT for her 5 heart stents. She denies any fainting yesterday. While she does not believe she had a fever at home, she does report that she has felt feverish in the ED. Patient did not take any of her regular p.o. medications this morning; no recent change in medications. She did not take any additional medications last night when her symptoms developed. 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 Patient did receive her flu shot this year; she has not had influenza anytime in recent memory. She denies smoking, tobacco use, and alcohol use. Patient is febrile at 39.5 C at time of admission; vitals otherwise stable. ED course: Vancomycin 1750 mg IV Rocephin 2000 mg IV Acetaminophen 1000 mg IV Tamiflu 75 mg p.o. NSS 1000 L IV ROS: Patient endorses lightheadedness with standing, falling down, feeling off- balance, intermittent HAs (chronic), runny nose, congestion, dry cough, and neuropathy in feet (chronic). Patient denies fever, chills, night-sweats, body aches, dizziness, changes in vision/hearing/taste/smell, chest pain, SOB, chest palpitations, pleuritic CP, abdominal pain, N/V/D, change in urinary/bowel habits, burning with urination, or blood in the urine/stool. Principal Dx & Hospital Course #1 = Principal Diagnosis (1) Influenza A: Lethargy, congestion, and lightheadedness with standing that began on 01/17 Patient reports she fell twice when standing; no LOC; head strike x [address] revealed no acute intracranial abnormalities, CXR revealed no acute processes Influenza A (+) on arrival, Procalcitonin mildly elevated at 1.01 but do not suspect bacterial infection, no PNA Febrile and with tachycardia, now resolved with IVFs, tylenol Lactate WNL, Blood cultures NGTD past 24 hours Vancomycin + Rocephin given in the ED- deferred further antibiotics and doing well Tamiflu 30mg p.o. BID (dose-reduced in the setting of KRISTIN) but dc to home on 75mg po bid x 4 more days now that renal function improved Labs normal Much improved, feeling great, stable for dc to home on stress dose steroids and Tamiflu (2) Secondary adrenal insufficiency: Hydrocortisone 100 mg IV given in the ED in the setting of acute physiologic stress and febrile illness Continued hydrocortisone 50mg IV q6h and dc on prednisone stress dose taper BPs normal, not lightheaded, able to independently ambulate (3) Hypopituitarism: Panhypopituitarism d/t postsurgical intervention; growth hormone deficiency/hypogonadism/hypothyroidism and secondary adrenal insufficiency Dx of meningioma in 2002, with recurrence in 2006 (post removal of pituicytoma) Follows with [facility] Continue supplementation daily (4) KRISTIN (acute kidney injury): BUN 19, creatinine 1.38 (baseline 0.99), EGFR 40.6 on admission, and now unit secretary down to 0.92 on day of discharge Avoid nephrotoxic agents for possible was given 3L of isotonic IVFs (5) Acute hypokalemia: Mild, replaced orally (6) CAD (coronary artery disease): 5 stents in the setting of ACS in 2014 Continue aspirin and Plavix, statin, Toprol XL had mild ST depressions and sinus tach on arrival but never had chest pain and trop peaked at 30, not ACS but rather myocardial demand ischemia in setting of sepsis (7) EKG, abnormal: EKG revealed sinus tachycardia with occasional PVCs at 102 bpm, ST depressions mainly in the lateral leads-This is new when compared to EKG on 10/19/2023 Stress echocardiogram on 11/11/2023 was negative for exercise ischemia on echo and EKG; will defer another echo at this time Troponin 21-->peaked at 30 no further eval needed, has underlying known CAD (8) Chronic pain: Continue gabapentin Plan Disposition: dc to home VTE PPx: SCDs Discharge Exam Constitutional WD/WN, vitals as above Respiratory normal respiratory effort, lungs clear to auscultation Cardiovascular RRR, no murmur, no edema Gastrointestinal (Abdomen) normal bowel sounds, soft, nontender, no hepatosplenomegaly Psychiatric A+Ox3, euthymic affect Updated Medication List Medication Instructions Recorded Confirmed Type aspirin 81 mg tablet,delayed 81 mg PO DAILY #30 tabs 09/01/19 01/19/24 Rx release cholecalciferol (vitamin D3) 50 2,000 unit PO QAM 04/06/20 01/19/24 History mcg (2,000 unit) tablet (Vitamin D3) diazepam 5 mg tablet 5 mg PO .COMPLEX PRN anxiety #2 04/28/23 01/19/24 Rx tabs rimegepant 75 mg disintegrating 75 mg PO DIRECTED PRN migraine 04/28/23 01/19/24 History tablet (Nurtec ODT) headache rosuvastatin 20 mg tablet 20 mg PO QAM #90 tabs 04/29/23 01/19/24 Rx gabapentin 600 mg tablet 600 mg PO BID #60 tabs 06/22/23 01/19/24 Rx levothyroxine 125 mcg tablet 125 mcg PO DAILY #90 tabs 07/13/23 01/19/24 Rx pantoprazole 40 mg tablet,delayed 40 mg PO QAM #90 tabs 08/12/23 01/19/24 Rx release tramadol 50 mg tablet 50 mg PO .QD-BID PRN pain #30 tabs 08/17/23 01/19/24 Rx montelukast 10 mg tablet 10 mg PO QPM #30 tabs 09/09/23 01/19/24 Rx (Singulair) prednisone 1 mg tablet 4 mg (4 x 1 mg) PO QAM #360 tabs 10/22/23 01/19/24 Rx fluticasone 100 mcg-salmeterol 50 1 inh inhalation BID #60 ea 10/25/23 01/19/24 Rx mcg/dose blistr powdr for inhalation (Advair Diskus) fenofibrate 160 mg tablet 160 mg PO DAILY #90 tabs 10/29/23 01/19/24 Rx clopidogrel 75 mg tablet 75 mg PO DAILY #90 tabs 11/08/23 01/19/24 Rx cyclobenzaprine 10 mg tablet 10 mg PO BID PRN muscle spasm #60 12/14/23 01/19/24 Rx tabs metoprolol succinate 25 mg 25 mg PO DAILY #90 tabs 12/14/23 01/19/24 Rx tablet,extended release 24 hr topiramate 50 mg tablet (Topamax) 50 mg PO .COMPLEX #90 tabs 12/25/23 01/19/24 Rx clonazepam 1 mg tablet 1 mg PO HS #30 tabs 01/07/24 01/19/24 Rx albuterol sulfate 90 mcg/actuation 2 puff inhalation Q6 PRN Shortness 01/13/24 01/19/24 Rx aerosol inhaler Of Breath Or Wheezing #8.5 grams cyanocobalamin (vitamin B-12) 1,000 mcg IM .[id number] 01/19/24 01/19/24 History 1,000 mcg/mL injection solution oseltamivir 75 mg capsule 75 mg PO BID 4 days #8 caps 01/20/24 Rx prednisone 10 mg tablet 20 mg (2 x 10 mg) PO DAILY #6 tabs 01/20/24 Rx Hospital Stay Data Consultations 01/19/24 16:19 ED Decision to Admit Stat Diagnostic Imagining Performed 01/19/24 14:00 CT head/brain wo con Stat Pending Results Patient Have Any Pending Studies at Discharge: Yes (Final blood cultures-no growth to date) Discharge Instructions Given to Patient (Per Discharging Provider) Please continue taking the stress dose of steroids with prednisone 20mg daily x 2 days, then 10mg daily x 2 days, then resume your usual 4mg daily. Please finish out the course of Tamiflu, twice a day for influenza. If you start feeling poorly again, please call your doctor or come to the hospital. Total Time Total Time Spent Total Time Spent (In Minutes): 35 min Total Time Includes: Examination of the Patient, Discharge Planning and Medication Reconciliation Coding Level of Care Code 52362 INP/OBS DISCH >30 MIN Diagnoses Influenza A J10.1 Secondary adrenal insufficiency E27.49 Hypopituitarism E23.0 KRISTIN (acute kidney injury) N17.9 Acute hypokalemia E87.6 CAD (coronary artery disease) I25.10 EKG, abnormal R94.31 Chronic pain G89.29
== END 2024-01-20 17:45 | disposition home or self-care (01) | DRG 871 ==
LOC: ED 13:11 → SUATTDRO 17:11 → 2W 17:11 → INTOOBSV 17:11 → 2W 18:34